=== PATIENT | female | born 1990 | race Caucasian/White ===

== ENCOUNTER → 2023-09-30 13:41 | Outpatient (CLI) | payer OTHER, MEDICAID, SELFPAY ==
[2023-09-30 19:59] LABS: Microalbumi Creatinin Ratio Ur 132.5 ug/mg CR (<30); Microalbumin Urine Random 5.7 mg/dL (0-1.6)
== END ==
PROVIDERS: PCP Physician Assistant; Visit Provider Physician Assistant
DX: E11.9 Type 2 diabetes mellitus without complications (principal)
CPT/HCPCS: 82043; 82570

== ENCOUNTER → 2023-10-01 10:56 | Outpatient (CLI) | payer OTHER, MEDICAID, SELFPAY ==
[2023-10-01 19:08] LABS: Alanine Aminotransferase 22 IU/L (<35); Albumin 3.9 g/dL (3.5-5.0); Albumin Globulin Ratio 1.1 (1.0-2.8); Alkaline Phosphatase 86 U/L (38-126); Aspartate Aminotransferase 26 IU/L (14-36); Bilirubin Total 0.8 mg/dL (0.2-1.3); Blood Urea Nitrogen 15 mg/dL (7-17); Calcium 9.4 mg/dL (8.4-10.2); Carbon Dioxide 31 mmol/L (22-32); Chloride 100 mmol/L (98-107); Cholesterol 186 mg/dL (140-199); Estimated Glomerular Filt Rate > 60 mL/min (>60); Globulin 3.5 g/dL (1.7-4.1); Glucose 137 mg/dL (70-100); HDL Cholesterol 37 mg/dL (40-60); HEMOLYSIS < 15 (0-50); LDL Cholesterol Calculated 118 mg/dL (<100); Potassium 4.6 mmol/L (3.4-5.1); Sodium 139 mmol/L (137-145); Total Protein 7.4 g/dL (6.3-8.2); Triglycerides 156 mg/dL (35-150)
[2023-10-01 19:34] LABS: TSH w/ Reflex to FT4 4.07 uIU/mL (0.47-4.68)
[2023-10-01 19:56] LABS: Hemoglobin A1C% w Est Avg Glu 7.2 % (4.0-6.0)
== END ==
PROVIDERS: PCP Physician Assistant; Visit Provider Physician Assistant
DX: E11.9 Type 2 diabetes mellitus without complications (principal); E03.9 Hypothyroidism, unspecified; Z79.899 Other long term (current) drug therapy
CPT/HCPCS: 80053; 80061; 83036; 84443

== ENCOUNTER → 2024-01-11 10:14 | Outpatient (CLI) | payer OTHER, MEDICAID, SELFPAY ==
[2024-01-11 19:39] LABS: HEMOLYSIS < 15 (0-50); Iron 53 ug/dL (37-170)
[2024-01-11 19:50] LABS: Alanine Aminotransferase 18 IU/L (<35); Albumin Globulin Ratio 1.1 (1.0-2.8); Alkaline Phosphatase 79 U/L (38-126); Aspartate Aminotransferase 21 IU/L (14-36); BUN Creatinine Ratio 17.3 (6-22); Bilirubin Total 0.6 mg/dL (0.2-1.3); Blood Urea Nitrogen 9 mg/dL (7-17); Calcium 9.1 mg/dL (8.4-10.2); Carbon Dioxide 28 mmol/L (22-32); Chloride 105 mmol/L (98-107); Cholesterol 183 mg/dL (140-199); Estimated Glomerular Filt Rate > 60 mL/min (>60); Globulin 3.6 g/dL (1.7-4.1); Glucose 140 mg/dL (70-100); HDL Cholesterol 36 mg/dL (40-60); HEMOLYSIS < 15 (0-50); LDL Cholesterol Calculated 107 mg/dL (<100); Potassium 4.4 mmol/L (3.4-5.1); Sodium 138 mmol/L (137-145); Total Protein 7.6 g/dL (6.3-8.2); Triglycerides 202 mg/dL (35-150)
[2024-01-11 19:57] LABS: Percent Iron Saturation 14 % (15-50); Total Iron Binding Capacity 392 ug/dL (265-497); Transferrin 328 mg/dL (206-381)
[2024-01-11 20:12] LABS: TSH w/ Reflex to FT4 2.99 uIU/mL (0.47-4.68)
[2024-01-11 20:20] LABS: Ferritin 46 ng/mL (6-137)
== END ==
PROVIDERS: PCP Physician Assistant; Visit Provider Physician Assistant
DX: E11.9 Type 2 diabetes mellitus without complications (principal); Z79.899 Other long term (current) drug therapy; E03.9 Hypothyroidism, unspecified; I10 Essential (primary) hypertension; F32.A Depression, unspecified; F41.9 Anxiety disorder, unspecified
CPT/HCPCS: 80053; 80061; 82728; 83540; 83550; 84443

== ENCOUNTER → 2024-01-13 14:12 | Outpatient (CLI) | payer OTHER, MEDICAID, SELFPAY ==
[2024-01-13 19:46] LABS: Creatinine Urine Random 65.9 mg/dL
[2024-01-13 19:48] LABS: Microalbumi Creatinin Ratio Ur 66.7 ug/mg CR (<30); Microalbumin Urine Random 4.4 mg/dL (0-1.6)
== END ==
PROVIDERS: PCP Physician Assistant; Visit Provider Physician Assistant
DX: E11.9 Type 2 diabetes mellitus without complications (principal)
CPT/HCPCS: 82043; 82570

== ENCOUNTER → 2024-04-05 09:20 | Outpatient (CLI) | payer OTHER, SELFPAY ==
[2024-04-05 19:20] LABS: Alanine Aminotransferase 28 IU/L (<35); Albumin Globulin Ratio 1.2 (1.0-2.8); Alkaline Phosphatase 98 U/L (38-126); Aspartate Aminotransferase 29 IU/L (14-36); BUN Creatinine Ratio 29.1 (6-22); Bilirubin Total 0.4 mg/dL (0.2-1.3); Blood Urea Nitrogen 16 mg/dL (7-17); Calcium 9.5 mg/dL (8.4-10.2); Carbon Dioxide 27 mmol/L (22-32); Chloride 107 mmol/L (98-107); Cholesterol 165 mg/dL (140-199); Estimated Glomerular Filt Rate > 60 mL/min (>60); Globulin 3.4 g/dL (1.7-4.1); Glucose 158 mg/dL (70-100); HDL Cholesterol 41 mg/dL (40-60); HEMOLYSIS < 15 (0-50); LDL Cholesterol Calculated 94 mg/dL (<100); Potassium 4.5 mmol/L (3.4-5.1); Sodium 139 mmol/L (137-145); Total Protein 7.4 g/dL (6.3-8.2); Triglycerides 152 mg/dL (35-150)
[2024-04-05 19:49] LABS: TSH w/ Reflex to FT4 4.67 uIU/mL (0.47-4.68)
== END ==
PROVIDERS: PCP Family Medicine; Visit Provider Physician Assistant
DX: E11.9 Type 2 diabetes mellitus without complications (principal); E03.9 Hypothyroidism, unspecified; I10 Essential (primary) hypertension; E78.00 Pure hypercholesterolemia, unspecified
CPT/HCPCS: 80053; 80061; 83036; 84443

== ENCOUNTER → 2024-04-14 15:38 | Outpatient (CLI) | payer OTHER, SELFPAY | PROVIDERS: PCP Family Medicine; Visit Provider Nurse Practitioner Adult Health | DX: N76.3 Subacute and chronic vulvitis (principal) | CPT/HCPCS: 87798; 87801 ==

== ENCOUNTER → 2024-06-01 11:26 | Outpatient (CLI) | payer OTHER, SELFPAY ==
[2024-06-01 20:14] LABS: Progesterone, Total 0.46 ng/mL
[2024-06-01 20:15] LABS: HCG Quantitative /Beta subunit < 2.39 mIU/mL
== END ==
PROVIDERS: PCP Family Medicine; Visit Provider Nurse Practitioner Adult Health
DX: N91.3 Primary oligomenorrhea (principal)
CPT/HCPCS: 82397; 84144; 84402; 84403; 84702

== ENCOUNTER → 2024-09-15 15:34 | Outpatient (CLI) | payer BC, SELFPAY | PROVIDERS: PCP Family Medicine; Visit Provider Nurse Practitioner Adult Health | DX: N89.8 Other specified noninflammatory disorders of vagina (principal) | CPT/HCPCS: 87798; 87801 ==

== ENCOUNTER → 2024-11-08 10:57 | Outpatient (CLI) | payer BC, SELFPAY ==
[2024-11-08 19:34] LABS: Add Manual Diff / Slide Review NO; Basophils Absolute Auto 0 /uL (0-100); Basophils Percent Auto 0.5 % (0-2); Eosinophils Absolute Auto 200 /uL (0-450); Eosinophils Percent Auto 1.7 % (2-4); Hematocrit 39.1 % (36-46); Hemoglobin 12.6 g/dL (12.0-16.0); Lymphocytes Absolute Auto 2300 /uL (1100-4500); Mean Corpuscular HGB Conc 32.1 % (30-36); Mean Corpuscular Hemoglobin 25.7 PG (26-34); Mean Corpuscular Volume 80.1 fL (80-100); Monocytes Absolute Auto 500 /uL (0-900); Monocytes Percent Auto 6.2 % (3-14); Neutrophils Absolute Auto 5700 /uL (1500-7000); Neutrophils Percent Auto 65.6 % (50-75); Platelet Count 371 X10^3/uL (150-400); Red Blood Cell Count 4.88 X10^6/uL (4.0-5.2); Red Cell Distribution Width 16.6 % (11.6-14.8); White Blood Cell Count 8.7 X10^3/uL (4.5-11.0)
[2024-11-08 19:46] LABS: HEMOLYSIS < 15 (0-50); Iron 38 ug/dL (37-170)
[2024-11-08 19:56] LABS: Percent Iron Saturation 11 % (15-50); Total Iron Binding Capacity 349 ug/dL (265-497); Transferrin 304 mg/dL (206-381)
[2024-11-08 20:00] LABS: HCG Quantitative /Beta subunit < 2.39 mIU/mL
[2024-11-08 20:01] LABS: Follicle Stimulating Hormone 3.73 mIU/mL
[2024-11-08 20:05] LABS: Vitamin D 25 Hydroxy (D3) 18.4 ng/mL (30.0-100.0)
[2024-11-08 20:18] LABS: Ferritin 33 ng/mL (6-137)
[2024-11-08 20:19] LABS: Thyroid Stimulating Hormone 5.08 uIU/mL (0.47-4.68)
== END ==
PROVIDERS: PCP Family Medicine; Visit Provider Family Medicine
DX: N91.2 Amenorrhea, unspecified (principal); E11.42 Type 2 diabetes mellitus with diabetic polyneuropathy; F41.9 Anxiety disorder, unspecified; R53.83 Other fatigue; E03.9 Hypothyroidism, unspecified; I10 Essential (primary) hypertension; R80.9 Proteinuria, unspecified; E11.29 Type 2 diabetes mellitus with other diabetic kidney complication
CPT/HCPCS: 82306; 82728; 83001; 83036; 83540; 83550; 84146; 84443; 84702; 85025

== ENCOUNTER → 2025-02-08 11:14 | Outpatient (CLI) | payer OTHER, SELFPAY ==
[2025-02-08 18:50] LABS: HEMOLYSIS < 15 (0-50); Iron 71 ug/dL (37-170)
[2025-02-08 19:03] LABS: Percent Iron Saturation 19 % (15-50); Total Iron Binding Capacity 368 ug/dL (265-497); Transferrin 304 mg/dL (206-381)
[2025-02-08 19:07] LABS: Vitamin D 25 Hydroxy (D3) 21.8 ng/mL (30.0-100.0)
[2025-02-08 19:21] LABS: TSH w/ Reflex to FT4 4.99 uIU/mL (0.47-4.68)
[2025-02-08 19:25] LABS: Ferritin 64 ng/mL (6-137)
[2025-02-08 20:25] LABS: Free T4, Direct Thyroxine 1.51 ng/dL (0.78-2.19)
== END ==
PROVIDERS: PCP Family Medicine; Visit Provider Family Medicine
DX: E03.9 Hypothyroidism, unspecified (principal); E61.1 Iron deficiency; E55.9 Vitamin D deficiency, unspecified; F41.9 Anxiety disorder, unspecified; E66.01 Morbid (severe) obesity due to excess calories; E11.29 Type 2 diabetes mellitus with other diabetic kidney complication; E78.5 Hyperlipidemia, unspecified; R80.9 Proteinuria, unspecified; R79.0 Abnormal level of blood mineral
CPT/HCPCS: 82306; 82728; 83540; 83550; 84439; 84443

== ENCOUNTER → 2025-03-28 14:25 | Outpatient (CLI) | payer OTHER, SELFPAY ==
[2025-03-28 19:44] LABS: LDL Cholesterol Direct 161 mg/dL (<100)
[2025-03-28 20:00] LABS: Thyroid Stimulating Hormone 2.13 uIU/mL (0.47-4.68)
[2025-03-28 20:03] LABS: Vitamin D 25 Hydroxy (D3) 30.2 ng/mL (30.0-100.0)
[2025-03-28 20:10] LABS: Ferritin 81 ng/mL (6-137); Hemoglobin A1C% w Est Avg Glu 8.4 % (4.0-6.0)
== END ==
PROVIDERS: PCP Family Medicine; Visit Provider Family Medicine
DX: E11.42 Type 2 diabetes mellitus with diabetic polyneuropathy (principal); E55.9 Vitamin D deficiency, unspecified; E11.29 Type 2 diabetes mellitus with other diabetic kidney complication; R80.9 Proteinuria, unspecified; E61.1 Iron deficiency; E03.9 Hypothyroidism, unspecified; E78.5 Hyperlipidemia, unspecified
CPT/HCPCS: 82306; 82728; 83036; 83721; 84443

== ENCOUNTER → 2025-07-11 17:30 | Outpatient (CLI) | payer OTHER, SELFPAY ==
[2025-07-12 19:42] LABS: Microalbumi Creatinin Ratio Ur 76.0 ug/mg CR (<30)
== END ==
PROVIDERS: PCP Family Medicine; Visit Provider Family Medicine
DX: E11.42 Type 2 diabetes mellitus with diabetic polyneuropathy (principal)
CPT/HCPCS: 82043; 82570

== ENCOUNTER → 2025-07-20 11:03 | Outpatient (CLI) | payer OTHER, SELFPAY ==
[2025-07-20 19:00] LABS: Hematocrit 35.9 % (36-46); Hemoglobin 11.8 g/dL (12.0-16.0); Mean Corpuscular HGB Conc 32.8 % (30-36); Mean Corpuscular Hemoglobin 27.4 PG (26-34); Mean Corpuscular Volume 83.3 fL (80-100); Platelet Count 286 X10^3/uL (150-400)
[2025-07-20 19:07] LABS: Alanine Aminotransferase 53 IU/L (<35); Albumin 3.8 g/dL (3.5-5.0); Albumin Globulin Ratio 1.2 (1.0-2.8); Alkaline Phosphatase 83 U/L (38-126); Blood Urea Nitrogen 9 mg/dL (7-17); Calcium 8.9 mg/dL (8.4-10.2); Carbon Dioxide 30 mmol/L (22-32); Chloride 98 mmol/L (98-107); Cholesterol 151 mg/dL (140-199); Estimated Glomerular Filt Rate > 60 mL/min (>60); Globulin 3.2 g/dL (1.7-4.1); Glucose 249 mg/dL (70-99); HDL Cholesterol 35 mg/dL (40-60); HEMOLYSIS < 15 (0-50); Potassium 4.2 mmol/L (3.4-5.1); Sodium 136 mmol/L (137-145); Total Protein 7.0 g/dL (6.3-8.2); Triglycerides 176 mg/dL (35-150)
[2025-07-20 19:20] LABS: Hemoglobin A1C% w Est Avg Glu 8.7 % (4.0-6.0)
[2025-07-20 19:37] LABS: Thyroid Stimulating Hormone 7.57 uIU/mL (0.47-4.68)
[2025-07-20 19:41] LABS: Ferritin 76 ng/mL (6-137)
== END ==
PROVIDERS: PCP Family Medicine; Visit Provider Family Medicine
DX: E11.42 Type 2 diabetes mellitus with diabetic polyneuropathy (principal); E78.2 Mixed hyperlipidemia; I10 Essential (primary) hypertension; E03.9 Hypothyroidism, unspecified; E61.1 Iron deficiency
CPT/HCPCS: 80053; 80061; 82728; 83036; 84443; 85027